=== PATIENT | male | born 1970 | race American Indian/Alaskan Native ===

== ENCOUNTER 2017-03-02 00:41 | Emergency (ER) | payer MEDICAID ==
[2017-03-02] MEDS ORDERED: PEPCID PO ONE (04:52)
[2017-03-02] MEDS ORDERED: DECADRON IM ONE (04:52)
[2017-03-02] MEDS ORDERED: BENADRYL IM ONE (04:52)
--- NOTE | 2017-03-02 05:19 | Emergency Department Report ---
ED Allergic Reaction HPI - General Chief complaint: Allergic Reaction Stated complaint: POSS REACTION TO HAIR DYE Time Seen by Provider: 03/02/17 04:18 Source: patient Mode of arrival: Ambulatory Limitations: No Limitations - History of Present Illness Initial Comments: 46-year-old male no significant past medical history presents with complaint of irritation and itchy skin to scalp and ears bilaterally. Patient states that 3 days ago he used a hair dye just for men brand and almost immediately after applying it began to develop itchy skin on scalp. Patient denies any shortness of breath is fully awake alert and oriented 3 no audible wheezing or stridor noted. Patient denies any hives on body or extremities but has visible raised bumpy and irritated skin around the edges of the scalp. Patient also complaining of significant irritation to skin on both ears. States that skin around his scalp and tops of his ears is very itchy. Denies any facial swelling or tongue swelling or lip swelling otherwise. States he has been taking some Benadryl for the itching. MD Complaint: allergic reaction Onset/Timin -: days(s) Symptoms: itching Treatment Prior to Arrival: benadryl - Related Data Previous Rx's Medication Instructions Recorded Last Taken Type Cetirizine HCl [ZyrTEC] 10 mg PO QDAY #1 bottle 03/02/17 Unknown Rx Ciprofloxacin HCl [Ciprofloxacin 500 mg PO Q12H #14 tab 03/02/17 Unknown Rx TAB] EPINEPHrine (NF) [Epipen (Nf)] 0.3 mg IM ONCE PRN #1 syringekit 03/02/17 Unknown Rx Famotidine [Pepcid] 20 mg PO BID PRN #30 tablet 03/02/17 Unknown Rx Hydrocortisone 1% [Hydrocortisone 1 applicatio TP TID #1 tube 03/02/17 Unknown Rx 1% CREAM] Hydroxyzine HCl 25 mg PO Q8H PRN #25 tablet 03/02/17 Unknown Rx Mupirocin [Bactroban 2% CREAM] 1 applicatio TP TID #1 cream 03/02/17 Unknown Rx Allergies Allergy/AdvReac Type Severity Reaction Status Date / Time No Known Allergies Allergy Verified 03/02/17 00:45 ED Review of Systems ROS: Stated complaint: POSS REACTION TO HAIR DYE Other details as noted in HPI Constitutional: denies: chills, fever Eyes: denies: eye pain, eye discharge, vision change ENT: denies: ear pain, throat pain Respiratory: denies: cough, shortness of breath, wheezing Cardiovascular: denies: chest pain, palpitations Endocrine: no symptoms reported Gastrointestinal: denies: abdominal pain, nausea, diarrhea Genitourinary: denies: urgency, dysuria Musculoskeletal: denies: back pain, joint swelling, arthralgia Skin: denies: rash, lesions Neurological: denies: headache, weakness, paresthesias Psychiatric: denies: anxiety, depression Hematological/Lymphatic: denies: easy bleeding, easy bruising ED Past Medical Hx - Past Medical History Previous Medical History?: No - Surgical History Past Surgical History?: No - Social History Smoking Status: Current Every Day Smoker Substance Use Type: Alcohol - Medications Home Medications: Home Medications Medication Instructions Recorded Confirmed Last Taken Type Cetirizine HCl [ZyrTEC] 10 mg PO QDAY #1 bottle 03/02/17 Unknown Rx Ciprofloxacin HCl [Ciprofloxacin 500 mg PO Q12H #14 tab 03/02/17 Unknown Rx TAB] EPINEPHrine (NF) [Epipen (Nf)] 0.3 mg IM ONCE PRN #1 syringekit 03/02/17 Unknown Rx Famotidine [Pepcid] 20 mg PO BID PRN #30 tablet 03/02/17 Unknown Rx Hydrocortisone 1% [Hydrocortisone 1 applicatio TP TID #1 tube 03/02/17 Unknown Rx 1% CREAM] Hydroxyzine HCl 25 mg PO Q8H PRN #25 tablet 03/02/17 Unknown Rx Mupirocin [Bactroban 2% CREAM] 1 applicatio TP TID #1 cream 03/02/17 Unknown Rx ED Physical Exam - General Limitations: No Limitations General appearance: alert, in no apparent distress - Head Head exam: Present: atraumatic, normocephalic, other (hives at edges of scalp) - Eye Eye exam: Present: normal appearance, PERRL, EOMI - ENT ENT exam: Present: mucous membranes moist - Expanded ENT Exam Expanded 1 - Irritation and erythema in this region, flaky irritated slightly erythematous skin 2 - Flaky irritated slightly erythematous skin - Neck Neck exam: Present: normal inspection, full ROM - Respiratory Respiratory exam: Present: normal lung sounds bilaterally. Absent: respiratory distress - Cardiovascular Cardiovascular Exam: Present: regular rate, normal rhythm. Absent: systolic murmur, diastolic murmur, rubs, gallop - GI/Abdominal GI/Abdominal exam: Present: soft, normal bowel sounds - Rectal Rectal exam: Present: deferred - Extremities Exam Extremities exam: Present: normal inspection - Back Exam Back exam: Present: normal inspection - Neurological Exam Neurological exam: Present: alert, oriented X3 - Psychiatric Psychiatric exam: Present: normal affect, normal mood - Skin Skin exam: Present: warm, dry, intact, normal color. Absent: rash ED Course Vital Signs 03/02/17 00:45 Temperature 98.1 F Pulse Rate 92 H Respiratory 20 Rate Blood Pressure 119/84 O2 Sat by Pulse 100 Oximetry ED Medical Decision Making - Medical Decision Making A/P: Allergic reaction, contact dermatitis, perichondritis 1-hydroxyzine, Pepcid, Zyrtec, patient given dose of IM Decadron in the ED 2-hydrocortisone cream and the porous and cream to be applied to tops of the ears where skin is very irritated and flaky on exam 3-as patient is exhibiting erythema with slight superficial purulent exudates 2 tops of ears patient may be developing perichondritis secondarily to this allergic reaction. We'll treat patient empirically with 1 week course of ciprofloxacin as Pseudomonas is the most common culprit with perichondritis 4-I advised patient to return to the ED if he experiences any shortness of breath fever chills worsened pain or swelling of his ears and/or scalp 5-patient provided with EpiPen when necessary Critical care attestation.: If time is entered above; I have spent that time in minutes in the direct care of this critically ill patient, excluding procedure time. ED Disposition Clinical Impression: Perichondritis and chondritis of both pinnae Contact dermatitis Qualifiers: Contact dermatitis type: allergic Contact dermatitis trigger: dye Qualified Code(s): L23.4 - Allergic contact dermatitis due to dyes Disposition: DC-01 TO HOME OR SELFCARE Is pt being admited?: No Does the pt Need Aspirin: No Condition: Stable Instructions: Contact Dermatitis (ED), Urticaria (ED) Additional Instructions: [email or web address] Prescriptions: Cetirizine HCl [ZyrTEC] 10 mg PO QDAY #1 bottle Ciprofloxacin HCl [Ciprofloxacin TAB] 500 mg PO Q12H #14 tab EPINEPHrine (NF) [Epipen (Nf)] 0.3 mg IM ONCE PRN #1 syringekit PRN Reason: Anaphylaxis Famotidine [Pepcid] 20 mg PO BID PRN #30 tablet PRN Reason: Itching Hydrocortisone 1% [Hydrocortisone 1% CREAM] 1 applicatio TP TID #1 tube Hydroxyzine HCl 25 mg PO Q8H PRN #25 tablet PRN Reason: Itching Mupirocin [Bactroban 2% CREAM] 1 applicatio TP TID #1 cream Referrals: [facility] [Provider Group] - 3-5 Days [facility] [Provider Group] - 3-5 Days EVELYN KHAN MD [Staff Physician] - 3-5 Days Forms: Work/School Release Form(ED) Time of Disposition: 05:54
[2017-03-02 06:29] VITALS: BP 119/85
== END 2017-03-02 06:28 | disposition home or self-care (01) ==
LOC: ED 00:41
DX: H61.003 Unspecified perichondritis of external ear, bilateral (principal); L23.4 Allergic contact dermatitis due to dyes; F17.200 Nicotine dependence, unspecified, uncomplicated
CPT/HCPCS: 96372; 99282; J1100; J1200